=== PATIENT | male | born 1960 | race African-American/Black ===

== ENCOUNTER 2020-07-10 14:30 | Emergency (ER) | payer MEDICAID, OTHER ==
[~2020-07-10] VITALS: Ht 165.1 cm; Wt 66.0 kg
[2020-07-10] MEDS ORDERED: ACETAMINOPHEN 325MG TABLET PO ONE (15:45)
[2020-07-10] MEDS ORDERED: TETANUS, DIPHTHERIA, PERTUSSIS VAC/PF 0.5ML (>7YR OLD) IM ONE (16:00)
[2020-07-10 16:05] LABS: BASOPHILS % 0.8 % (0.0-2.0); EOSINOPHILS % 2.9 % (0.0-5.0); HEMATOCRIT. 47.9 % (42.0-52.0); HEMOGLOBIN. 16.2 g/dL (14.0-18.0); LYMPHOCYTES % 32.5 % (20.0-50.0); MEAN CORPUSCULAR HEMOGLOBIN 30.6 pg (28.0-32.0); MEAN CORPUSCULAR VOLUME 90.2 fL (80.0-94.0); MEAN PLATELET VOLUME 10.7 fl (7.4-10.4); MONOCYTES % 6.2 % (2.0-8.0); NEUTROPHILS % 57.6 % (40.0-76.0); PLATELET 276 x1000/uL (130-400); RED BLOOD CELL COUNT 5.31 mill/uL (4.7-6.1)
[2020-07-10 16:12] LABS: CHLORIDE 111 mEq/L (98-107)
[2020-07-10 19:30] VITALS: BP 157/61
[2020-07-10] MEDS ORDERED: IOHEXOL-300 100 ML BOTTLE ONE (20:45)
== END 2020-07-10 20:00 | disposition home or self-care (01) ==
LOC: ER 14:30
DX: K12.2 Cellulitis and abscess of mouth (principal); F17.210 Nicotine dependence, cigarettes, uncomplicated; Z71.6 Tobacco abuse counseling
CPT/HCPCS: 36415; 70487; 80053; 85025; 93005; 99285; 99406; Q9967

== ENCOUNTER 2023-09-15 21:01 | Emergency (ER) | payer MEDICAID, OTHER ==
[~2023-09-15] VITALS: Ht 170.2 cm; Wt 75.0 kg
[2023-09-15 21:10] VITALS: O2SAT 96
[2023-09-15] MEDS: ACETAMINOPHEN 325MG TABLET PO ONE (21:59)
[2023-09-15] MEDS: METOCLOPRAMIDE HCL 10MG/2ML VIAL IV ONE (21:59)
[2023-09-15] MEDS: HYDRALAZINE 20MG/ML VIAL IV ONE (21:59)
[2023-09-15] MEDS: DIPHENHYDRAMINE 50MG/ML VIAL IV ONE (22:03)
[2023-09-15 23:25] LABS: EOSINOPHILS % 0.9 % (0.0-5.0); HEMATOCRIT. 44.9 % (42.0-52.0); HEMOGLOBIN. 15.4 g/dL (14.0-18.0); LYMPHOCYTES % 23.1 % (20.0-50.0); MEAN CORPUSCULAR HEMOGLOBIN 30.9 pg (28.0-32.0); MEAN CORPUSCULAR HGB CONC 34.3 g/dL (31.0-37.0); MEAN CORPUSCULAR VOLUME 90.1 fL (80.0-94.0); PLATELET 256 x1000/uL (130-400); RED BLOOD CELL COUNT 4.98 mill/uL (4.7-6.1); RED CELL DISTRIBUTION WIDTH 13.3 % (11.6-14.6); WHITE BLOOD COUNT 6.6 x1000/uL (4.5-11.0)
[2023-09-15 23:36] LABS: PROTHROMBIN TIME 10.8 sec (9.6-11.0)
[2023-09-15 23:47] LABS: ALANINE AMINOTRANSFERASE 9 IU/L (10-49); ALBUMIN 4.9 g/dL (3.2-4.8); ASPARTATE AMINOTRANSFERASE 11 IU/L (<34); BILIRUBIN TOTAL 0.5 mg/dL (0.1-1.0); CALCIUM 9.7 mg/dL (8.7-10.4); CARBON DIOXIDE 28 mEq/L (21-32); CHLORIDE 106 mEq/L (98-107); GLUCOSE 103 mg/dL (70-105); POTASSIUM 3.8 mEq/L (3.5-5.1); PROTEIN TOTAL 7.7 g/dL (6.0-8.3); SODIUM 140 mEq/L (136-145); TROPONIN I HIGH SENSITIVITY 23 ng/L (3.0-53); UREA NITROGEN BLOOD 10 mg/dL (9-23)
[2023-09-16] MEDS ORDERED: LISI20TA31 MT (00:06)
[2023-09-16] MEDS ORDERED: LISI20TA31 PO (00:06)
[2023-09-16] MEDS ORDERED: AMLO10TA80 MT (00:06)
[2023-09-16 00:08] VITALS: BP 172/51; PULSE 65; RESP 20; TEMP 97.6
== END 2023-09-16 00:26 | disposition home or self-care (01) ==
LOC: ER 21:01
DX: I10 Essential (primary) hypertension (principal)
CPT/HCPCS: 80053; 85025; 85610; 84484; 36415; 71045; 70450; 96374; 96375; 99285; J1200; J0360; J2765; Z7610 ×2